=== PATIENT | female | born 1930 | race Caucasian/White ===

== ENCOUNTER → 2016-11-03 | Outpatient (REF) | payer MEDICARE, MEDICAID ==
[~2016-11-03] MED LIST: *CXR; /LANS30GR; /LINE60TA OR; /PANT40TA; /WARF25TA; /WARF5TA OR; ACET500C OR; ACET65TA; ACTONEL35 PO; ALBU83IN IN; ALBUTEROL LIQ INH; ATENOL25 PO; ATROVENT0.02% INH; AXID PO; BACT800T; CALCCHW12 OR; CELEXA PO; CELEXA10 PO; COLA100C2 OR; COLACE PO; COUM2TAB10 PO; COUMADIN25 PO; COZA1TAB PO; DEXA; DIGO0.126 OR; FENO145T PO; FLAG250T; FLUC10TA; FOLI1TAB OR; FOLIC1 PO; GALA12TA PO; GALANTAMINE OR; KEFLEX250 PO; LASI20TA OR; LASI40TA OR; LIDODERM TOPICAL; LOPR50TA OR; METH5TAB2 OR; METHADONE OR; METO25TA2; MIACALCIN; MILKSUS; MILKSUS OR; MINER; MULTIVIT OR; MULTIVITAMIN; NORV5TAB OR; OYST500T76; PERC5TAB8; PLAVIX75 PO; PRAV40TA OR; PRED10TA2; PRED10TA2 OR; PRED2.5T OR; PRED20TA OR; PRED5TAB OR; PREDNISON5 PO; PREVACID30 PO; PRIL20CA OR; PRILOSEC20 PO; RAZADYNE; RAZADYNE PO; REME30TA; REME30TA OR; SIMV40TA2; SULF500T2 PO; TESSALO100 PO; TIZANIDINE; VITAMIN D50000 UNT; VITAMIN D50000 UNT OR; VITAMINB12 INJ; ZANA4CAP OR; ZEBETA5 PO; ZITHROZPAK PO; ZOCOR40 PO; [UNRECOGNIZED DRUG - CODE] PO; [UNRECOGNIZED DRUG - CODE] PO; [UNRECOGNIZED DRUG - CODE] PO; [UNRECOGNIZED DRUG - OTHER]; [UNRECOGNIZED DRUG - OTHER] -; [UNRECOGNIZED DRUG - OTHER] PO; [UNRECOGNIZED DRUG - OTHER] PO; actonel OR; captopril; colace; ferrous sulfate OR; fleet enema; lidoderm; senokot PO; tizanidine; vit b 12 OR
[2016-11-03 09:33] LABS: MEAN CORPUSCULAR HGB CONC 30.9 g/dl (32.0-36.5); MEAN CORPUSCULAR VOLUME 93.8 fl (80.0-96.0); WHITE BLOOD COUNT 5.5 K/mm3 (4.0-10.0)
[2016-11-03 09:50] LABS: INR 2.04
[2016-11-03 10:21] LABS: ALBUMIN 3.5 GM/DL (3.2-5.2); ALT/SGPT 17 U/L (12-78); ANION GAP 12 MEQ/L (8-16); BLOOD UREA NITROGEN 29 MG/DL (7-18); CALCIUM LEVEL 8.4 MG/DL (8.8-10.2); CARBON DIOXIDE LEVEL 24 MEQ/L (21-32); CHLORIDE LEVEL 109 MEQ/L (98-107); CREATININE FOR GFR 0.74 MG/DL (0.55-1.02); GLOMERULAR FILTRATION RATE > 60.0 (>32); GLUCOSE, FASTING 73 MG/DL (83-110); POTASSIUM SERUM 4.8 MEQ/L (3.5-5.1); SODIUM LEVEL 145 MEQ/L (136-145)
== END | disposition home or self-care (01) ==
LOC: SKLAB5 08:41
PROVIDERS: ATTEND Family Medicine
DX: Z51.81 Encounter for therapeutic drug level monitoring (principal); Z79.01 Long term (current) use of anticoagulants; I48.91 Unspecified atrial fibrillation; D64.9 Anemia, unspecified

== ENCOUNTER → 2016-11-10 | Outpatient (REF) | payer MEDICARE, MEDICAID ==
[2016-11-10 09:13] LABS: INR 3.59
== END | disposition home or self-care (01) ==
LOC: SKLAB5 07:28
PROVIDERS: ATTEND Family Medicine
DX: Z51.81 Encounter for therapeutic drug level monitoring (principal); Z79.01 Long term (current) use of anticoagulants

== ENCOUNTER → 2016-11-17 | Outpatient (REF) | payer MEDICARE, MEDICAID ==
[2016-11-17 08:37] LABS: INR 2.36
== END | disposition home or self-care (01) ==
LOC: SKLAB5 07:32
PROVIDERS: ATTEND Family Medicine
DX: Z51.81 Encounter for therapeutic drug level monitoring (principal); Z79.01 Long term (current) use of anticoagulants

== ENCOUNTER → 2016-11-24 | Outpatient (REF) | payer MEDICARE, MEDICAID ==
[2016-11-24 08:54] LABS: INR 3.42
== END | disposition home or self-care (01) ==
LOC: SKLAB5 12:48
PROVIDERS: ATTEND Family Medicine
DX: Z51.81 Encounter for therapeutic drug level monitoring (principal); Z79.01 Long term (current) use of anticoagulants

== ENCOUNTER → 2016-12-01 | Outpatient (REF) | payer MEDICARE, MEDICAID ==
[2016-12-01 07:52] LABS: MEAN CORPUSCULAR HEMOGLOBIN 29.3 pg (27.0-33.0); MEAN CORPUSCULAR HGB CONC 31.5 g/dl (32.0-36.5); MEAN CORPUSCULAR VOLUME 93.2 fl (80.0-96.0); RED CELL DISTRIBUTION WIDTH 15.3 % (11.5-14.5); WHITE BLOOD COUNT 6.7 K/mm3 (4.0-10.0)
[2016-12-01 07:59] LABS: INR 2.68
[2016-12-01 08:08] LABS: ALBUMIN 3.6 GM/DL (3.2-5.2); ALT/SGPT 18 U/L (12-78); ANION GAP 10 MEQ/L (8-16); BLOOD UREA NITROGEN 22 MG/DL (7-18); CALCIUM LEVEL 8.8 MG/DL (8.8-10.2); CARBON DIOXIDE LEVEL 27 MEQ/L (21-32); CHLORIDE LEVEL 109 MEQ/L (98-107); CREATININE FOR GFR 0.67 MG/DL (0.55-1.02); GLOMERULAR FILTRATION RATE > 60.0 (>32); GLUCOSE, FASTING 85 MG/DL (83-110); PHOSPHORUS LEVEL 3.4 MG/DL (2.5-4.9); POTASSIUM SERUM 4.1 MEQ/L (3.5-5.1); SODIUM LEVEL 146 MEQ/L (136-145)
== END | disposition home or self-care (01) ==
LOC: SKLAB5 08:19
PROVIDERS: ATTEND Internal Medicine
DX: Z51.81 Encounter for therapeutic drug level monitoring (principal); Z79.01 Long term (current) use of anticoagulants; I48.91 Unspecified atrial fibrillation; D64.9 Anemia, unspecified

== ENCOUNTER → 2016-12-08 | Outpatient (REF) | payer MEDICARE, MEDICAID ==
[2016-12-08 09:18] LABS: INR 2.45
== END | disposition home or self-care (01) ==
LOC: SKLAB5 07:44
PROVIDERS: ATTEND Family Medicine
DX: Z51.81 Encounter for therapeutic drug level monitoring (principal); Z79.01 Long term (current) use of anticoagulants

== ENCOUNTER → 2016-12-15 | Outpatient (REF) | payer MEDICARE, MEDICAID ==
[2016-12-15 09:23] LABS: INR 2.71
== END | disposition home or self-care (01) ==
LOC: SKLAB5 08:02
PROVIDERS: ATTEND Family Medicine
DX: Z51.81 Encounter for therapeutic drug level monitoring (principal); Z79.01 Long term (current) use of anticoagulants

== ENCOUNTER → 2016-12-22 | Outpatient (REF) | payer MEDICARE, MEDICAID ==
[2016-12-22 08:26] LABS: INR 3.72
== END ==
LOC: SKLAB5 07:24
PROVIDERS: ATTEND Family Medicine
DX: Z51.81 Encounter for therapeutic drug level monitoring (principal); Z79.01 Long term (current) use of anticoagulants; I48.91 Unspecified atrial fibrillation

== ENCOUNTER → 2016-12-29 | Outpatient (REF) | payer MEDICARE, MEDICAID ==
[2016-12-29 09:56] LABS: MEAN CORPUSCULAR HEMOGLOBIN 29.2 pg (27.0-33.0); MEAN CORPUSCULAR HGB CONC 31.3 g/dl (32.0-36.5); MEAN CORPUSCULAR VOLUME 93.3 fl (80.0-96.0); RED CELL DISTRIBUTION WIDTH 14.1 % (11.5-14.5); WHITE BLOOD COUNT 6.2 K/mm3 (4.0-10.0)
[2016-12-29 10:06] LABS: INR 1.89
== END ==
LOC: SKLAB5 08:53
PROVIDERS: ATTEND Family Medicine
DX: I48.91 Unspecified atrial fibrillation (principal); D64.9 Anemia, unspecified; M06.9 Rheumatoid arthritis, unspecified

== ENCOUNTER → 2017-01-05 | Outpatient (REF) | payer MEDICARE, MEDICAID ==
[2017-01-05 09:16] LABS: INR 3.5
== END ==
LOC: SKLAB5 07:34
PROVIDERS: ATTEND Family Medicine
DX: I48.91 Unspecified atrial fibrillation (principal); Z79.01 Long term (current) use of anticoagulants

== ENCOUNTER → 2017-01-12 | Outpatient (REF) | payer MEDICARE, MEDICAID ==
[2017-01-12 10:02] LABS: INR 1.68
== END ==
LOC: SKLAB5 08:00
PROVIDERS: ATTEND Family Medicine
DX: Z51.81 Encounter for therapeutic drug level monitoring (principal); Z79.01 Long term (current) use of anticoagulants; I48.91 Unspecified atrial fibrillation

== ENCOUNTER → 2017-01-19 | Outpatient (REF) | payer MEDICARE, MEDICAID ==
[2017-01-19 10:24] LABS: INR 1.69
== END ==
LOC: SKLAB5 08:26
PROVIDERS: ATTEND Family Medicine
DX: Z51.81 Encounter for therapeutic drug level monitoring (principal); Z79.01 Long term (current) use of anticoagulants

== ENCOUNTER → 2017-01-26 | Outpatient (REF) | payer MEDICARE, MEDICAID ==
[2017-01-26 10:06] LABS: INR 2.34
== END ==
LOC: SKLAB5 07:50
PROVIDERS: ATTEND Family Medicine
DX: Z51.81 Encounter for therapeutic drug level monitoring (principal); Z79.01 Long term (current) use of anticoagulants

== ENCOUNTER → 2017-01-31 | Outpatient (REF) | payer MEDICARE, MEDICAID ==
[2017-01-31 08:28] LABS: INR 3.32
== END ==
LOC: SKLAB5 09:17
PROVIDERS: ATTEND Family Medicine
DX: Z51.81 Encounter for therapeutic drug level monitoring (principal); Z79.01 Long term (current) use of anticoagulants; I48.91 Unspecified atrial fibrillation

== ENCOUNTER → 2017-02-09 | Outpatient (REF) | payer MEDICARE, MEDICAID ==
[2017-02-09 12:02] LABS: INR 5.83
== END ==
LOC: SKLAB5 07:46
PROVIDERS: ATTEND Family Medicine
DX: Z51.81 Encounter for therapeutic drug level monitoring (principal); Z79.01 Long term (current) use of anticoagulants; I48.91 Unspecified atrial fibrillation

== ENCOUNTER → 2017-02-16 | Outpatient (REF) | payer MEDICARE, MEDICAID ==
[2017-02-16 09:08] LABS: INR 2.32
== END ==
LOC: SKLAB5 07:21
PROVIDERS: ATTEND Family Medicine
DX: Z51.81 Encounter for therapeutic drug level monitoring (principal); Z79.01 Long term (current) use of anticoagulants; I48.91 Unspecified atrial fibrillation

== ENCOUNTER → 2017-02-23 | Outpatient (REF) | payer MEDICARE, MEDICAID ==
[2017-02-23 09:35] LABS: INR 1.37
== END ==
LOC: SKLAB5 09:34
PROVIDERS: ATTEND Family Medicine
DX: Z51.81 Encounter for therapeutic drug level monitoring (principal); Z79.01 Long term (current) use of anticoagulants

== ENCOUNTER → 2017-03-02 | Outpatient (REF) | payer MEDICARE, MEDICAID ==
[2017-03-02 10:09] LABS: MEAN CORPUSCULAR VOLUME 96.5 fl (80.0-96.0); RED CELL DISTRIBUTION WIDTH 15.2 % (11.5-14.5); WHITE BLOOD COUNT 6.2 K/mm3 (4.0-10.0)
[2017-03-02 10:44] LABS: ANION GAP 8 MEQ/L (8-16); BLOOD UREA NITROGEN 27 MG/DL (7-18); CALCIUM LEVEL 8.5 MG/DL (8.8-10.2); CARBON DIOXIDE LEVEL 30 MEQ/L (21-32); CHLORIDE LEVEL 108 MEQ/L (98-107); CHOLESTEROL LEVEL 223 MG/DL (<200); CREATININE FOR GFR 0.64 MG/DL (0.55-1.02); GLOMERULAR FILTRATION RATE > 60.0 (>32); GLUCOSE, FASTING 89 MG/DL (83-110); MAGNESIUM LEVEL 2.4 MG/DL (1.8-2.4); POTASSIUM SERUM 4.2 MEQ/L (3.5-5.1); SODIUM LEVEL 146 MEQ/L (136-145); TRIGLYCERIDES LEVEL 260 MG/DL (<150)
== END ==
LOC: SKLAB5 07:12
PROVIDERS: ATTEND Family Medicine
DX: D64.9 Anemia, unspecified (principal); E03.9 Hypothyroidism, unspecified; I48.91 Unspecified atrial fibrillation; M06.9 Rheumatoid arthritis, unspecified

== ENCOUNTER → 2017-03-09 | Outpatient (REF) | payer MEDICARE, MEDICAID ==
[2017-03-09 09:23] LABS: INR 1.67
== END ==
LOC: SKLAB5 09:52
PROVIDERS: ATTEND Family Medicine
DX: Z51.81 Encounter for therapeutic drug level monitoring (principal); Z79.01 Long term (current) use of anticoagulants

== ENCOUNTER → 2017-03-15 | Outpatient (REF) | payer MEDICARE, MEDICAID | LOC: SKLAB5 12:00 | PROVIDERS: ATTEND Family Medicine | DX: Z86.14 Personal history of Methicillin resistant Staphylococcus aureus infection (principal) ==

== ENCOUNTER → 2017-03-16 | Outpatient (REF) | payer MEDICARE, MEDICAID ==
[2017-03-16 09:10] LABS: INR 1.73
== END ==
LOC: SKLAB5 08:29
PROVIDERS: ATTEND Family Medicine
DX: Z51.81 Encounter for therapeutic drug level monitoring (principal); Z79.01 Long term (current) use of anticoagulants; I48.91 Unspecified atrial fibrillation

== ENCOUNTER → 2017-03-22 | Outpatient (REF) | payer MEDICARE, MEDICAID | LOC: SKLAB5 10:35 | PROVIDERS: ATTEND Family Medicine | DX: Z86.14 Personal history of Methicillin resistant Staphylococcus aureus infection (principal) ==

== ENCOUNTER → 2017-03-23 | Outpatient (REF) | payer MEDICARE, MEDICAID ==
[2017-03-23 10:21] LABS: INR 2.28
== END ==
LOC: SKLAB5 12:15
PROVIDERS: ATTEND Family Medicine
DX: Z51.81 Encounter for therapeutic drug level monitoring (principal); Z79.01 Long term (current) use of anticoagulants; I48.91 Unspecified atrial fibrillation

== ENCOUNTER → 2017-03-30 | Outpatient (REF) | payer MEDICARE, MEDICAID ==
[2017-03-30 09:12] LABS: INR 3.34
== END ==
LOC: SKLAB5 07:27
PROVIDERS: ATTEND Family Medicine
DX: I48.91 Unspecified atrial fibrillation (principal)

== ENCOUNTER → 2017-03-31 | Outpatient (REF) | payer MEDICARE, MEDICAID | LOC: SKLAB5 11:28 | PROVIDERS: ATTEND Family Medicine | DX: Z86.14 Personal history of Methicillin resistant Staphylococcus aureus infection (principal) ==

== ENCOUNTER → 2017-04-01 | Outpatient (REF) | payer MEDICARE, MEDICAID ==
[2017-04-01 06:56] LABS: INR 2.18
== END ==
LOC: SKLAB5 08:44
PROVIDERS: ATTEND Family Medicine
DX: I48.91 Unspecified atrial fibrillation (principal)

== ENCOUNTER → 2017-04-06 | Outpatient (REF) | payer MEDICARE, MEDICAID | LOC: SKLAB5 08:04 | PROVIDERS: ATTEND Family Medicine | DX: Z51.81 Encounter for therapeutic drug level monitoring (principal); Z79.01 Long term (current) use of anticoagulants ==

== ENCOUNTER → 2017-04-13 | Outpatient (REF) | payer MEDICARE, MEDICAID ==
[2017-04-13 10:44] LABS: INR 2.81
== END ==
LOC: EEVIPCON → SKLAB5 07:21
PROVIDERS: ATTEND Family Medicine
DX: Z51.81 Encounter for therapeutic drug level monitoring (principal); Z79.01 Long term (current) use of anticoagulants; I48.91 Unspecified atrial fibrillation

== ENCOUNTER → 2017-04-19 | Outpatient (REF) | payer MEDICARE, MEDICAID ==
--- NOTE | 2017-04-19 19:35 | REP ---
AP PORTABLE CHEST: 04/19/2017. Comparison: 01/05/2016. Clinical history: Fever. Findings: Portable upright chest shows left ventricular configuration of the heart. There is venous hypertension without mak edema. Heavily calcified mitral annulus noted. No gross effusion. No dense consolidation. Some calcified granulomas in the left upper lobe and hilar region. Degenerative changes in the spine and right shoulder. Impression: 1. Cardiomegaly with venous hypertension, but no definite effusion, mak edema, dense consolidation or parenchymal mass. 2. Old granulomatous disease and a tortuous calcified aorta. 3. 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 Signed by Eyal Arechiga MD 04/19/2017 08:33 P
[2017-04-19 19:42] LABS: CALCIUM LEVEL 8.6 MG/DL (8.8-10.2); CREATININE FOR GFR 0.95 MG/DL (0.55-1.02); GLOMERULAR FILTRATION RATE 59.5 (>32); MEAN CORPUSCULAR HEMOGLOBIN 30.2 pg (27.0-33.0); MEAN CORPUSCULAR HGB CONC 31.1 g/dl (32.0-36.5); MEAN CORPUSCULAR VOLUME 96.9 fl (80.0-96.0); RED CELL DISTRIBUTION WIDTH 14.6 % (11.5-14.5); WHITE BLOOD COUNT 12.1 K/mm3 (4.0-10.0)
== END ==
LOC: SKLAB5 18:27
PROVIDERS: ATTEND Family Medicine
DX: R50.9 Fever, unspecified (principal); I51.7 Cardiomegaly; I70.0 Atherosclerosis of aorta

== ENCOUNTER → 2017-04-20 | Outpatient (REF) | payer MEDICARE, MEDICAID ==
[2017-04-20 09:56] LABS: INR 3.89
== END ==
LOC: SKLAB5 07:26
PROVIDERS: ATTEND Family Medicine
DX: Z51.81 Encounter for therapeutic drug level monitoring (principal); Z79.01 Long term (current) use of anticoagulants; I48.91 Unspecified atrial fibrillation

== ENCOUNTER → 2017-04-24 | Outpatient (REF) | payer MEDICARE, MEDICAID ==
[2017-04-24 08:29] LABS: INR 1.25
== END ==
LOC: SKLAB5 09:44
PROVIDERS: ATTEND Family Medicine
DX: Z51.81 Encounter for therapeutic drug level monitoring (principal); Z79.01 Long term (current) use of anticoagulants; I48.91 Unspecified atrial fibrillation

== ENCOUNTER → 2017-04-27 | Outpatient (REF) | payer MEDICARE, MEDICAID ==
[~2017-04-27] MED LIST changes: -COUM2TAB10 PO; +COUM2TAB22 PO
[2017-04-27 08:27] LABS: INR 1.69
== END ==
LOC: SKLAB4 09:55
PROVIDERS: ATTEND Family Medicine
DX: Z51.81 Encounter for therapeutic drug level monitoring (principal); Z79.01 Long term (current) use of anticoagulants; I48.91 Unspecified atrial fibrillation

== ENCOUNTER → 2017-05-04 | Outpatient (REF) | payer MEDICARE, MEDICAID ==
[2017-05-04 09:41] LABS: INR 1.62
== END ==
LOC: SKLAB5 08:20
PROVIDERS: ATTEND Family Medicine
DX: Z51.81 Encounter for therapeutic drug level monitoring (principal); Z79.01 Long term (current) use of anticoagulants; I48.91 Unspecified atrial fibrillation

== ENCOUNTER → 2017-05-11 | Outpatient (REF) | payer MEDICARE, MEDICAID ==
[2017-05-11 10:35] LABS: INR 1.32
== END ==
LOC: SKLAB5 08:57
PROVIDERS: ATTEND Family Medicine
DX: Z51.81 Encounter for therapeutic drug level monitoring (principal); Z79.01 Long term (current) use of anticoagulants; I48.91 Unspecified atrial fibrillation

== ENCOUNTER → 2017-05-18 | Outpatient (REF) | payer MEDICARE, MEDICAID ==
[2017-05-18 08:20] LABS: INR 1.89
== END ==
LOC: SKLAB5 06:32
PROVIDERS: ATTEND Family Medicine
DX: Z51.81 Encounter for therapeutic drug level monitoring (principal); Z79.01 Long term (current) use of anticoagulants; I48.91 Unspecified atrial fibrillation

== ENCOUNTER → 2017-05-25 | Outpatient (REF) | payer MEDICARE, MEDICAID ==
[2017-05-25 08:58] LABS: INR 3.05
== END ==
LOC: SKLAB5 07:45
PROVIDERS: ATTEND Family Medicine
DX: Z51.81 Encounter for therapeutic drug level monitoring (principal); Z79.01 Long term (current) use of anticoagulants; I48.91 Unspecified atrial fibrillation

== ENCOUNTER → 2017-06-01 | Outpatient (REF) | payer MEDICARE, MEDICAID ==
[2017-06-01 08:45] LABS: INR 2.88
[2017-06-01 08:46] LABS: MEAN CORPUSCULAR HEMOGLOBIN 29.6 pg (27.0-33.0); MEAN CORPUSCULAR HGB CONC 32.8 g/dl (32.0-36.5); MEAN CORPUSCULAR VOLUME 90.3 fl (80.0-96.0); RED CELL DISTRIBUTION WIDTH 14.8 % (11.5-14.5); WHITE BLOOD COUNT 6.3 K/mm3 (4.0-10.0)
[2017-06-01 08:58] LABS: ANION GAP 9 MEQ/L (8-16); BLOOD UREA NITROGEN 17 MG/DL (7-18); CALCIUM LEVEL 8.7 MG/DL (8.8-10.2); CARBON DIOXIDE LEVEL 28 MEQ/L (21-32); CHLORIDE LEVEL 106 MEQ/L (98-107); CREATININE FOR GFR 0.47 MG/DL (0.55-1.02); GLOMERULAR FILTRATION RATE > 60.0 (>32); GLUCOSE, FASTING 88 MG/DL (83-110); MAGNESIUM LEVEL 2.5 MG/DL (1.8-2.4); POTASSIUM SERUM 3.9 MEQ/L (3.5-5.1); SODIUM LEVEL 143 MEQ/L (136-145)
== END ==
LOC: SKLAB5 08:44
PROVIDERS: ATTEND Family Medicine
DX: I48.91 Unspecified atrial fibrillation (principal); M06.9 Rheumatoid arthritis, unspecified

== ENCOUNTER → 2017-06-08 | Outpatient (REF) | payer MEDICARE, MEDICAID ==
[2017-06-08 10:04] LABS: INR 2.71
== END ==
LOC: SKLAB5 08:07
PROVIDERS: ATTEND Family Medicine
DX: Z51.81 Encounter for therapeutic drug level monitoring (principal); Z79.01 Long term (current) use of anticoagulants; I48.91 Unspecified atrial fibrillation

== ENCOUNTER → 2017-06-15 | Outpatient (REF) | payer MEDICARE, MEDICAID ==
[2017-06-15 09:57] LABS: INR 3.18
== END ==
LOC: SKLAB5 07:53
PROVIDERS: ATTEND Family Medicine
DX: I48.91 Unspecified atrial fibrillation (principal)

== ENCOUNTER → 2017-06-22 | Outpatient (REF) | payer MEDICARE, MEDICAID ==
[2017-06-22 08:44] LABS: INR 4.26
== END ==
LOC: SKLAB5 07:50
PROVIDERS: ATTEND Family Medicine
DX: Z51.81 Encounter for therapeutic drug level monitoring (principal); Z79.01 Long term (current) use of anticoagulants; I48.91 Unspecified atrial fibrillation

== ENCOUNTER → 2017-06-29 | Outpatient (REF) | payer MEDICARE, MEDICAID ==
[2017-06-29 08:32] LABS: INR 2.78
== END ==
LOC: SKLAB5 08:38
PROVIDERS: ATTEND Family Medicine
DX: Z51.81 Encounter for therapeutic drug level monitoring (principal); Z79.01 Long term (current) use of anticoagulants; I48.91 Unspecified atrial fibrillation

== ENCOUNTER → 2017-07-06 | Outpatient (REF) | payer MEDICARE, MEDICAID ==
[2017-07-06 09:05] LABS: INR 3.31
== END ==
LOC: SKLAB5 07:30
PROVIDERS: ATTEND Family Medicine
DX: I48.91 Unspecified atrial fibrillation (principal)

== ENCOUNTER → 2017-07-13 | Outpatient (REF) | payer MEDICARE, MEDICAID | LOC: SKLAB5 07:29 | PROVIDERS: ATTEND Family Medicine | DX: Z51.81 Encounter for therapeutic drug level monitoring (principal); Z79.01 Long term (current) use of anticoagulants; I48.91 Unspecified atrial fibrillation ==

== ENCOUNTER → 2017-07-20 | Outpatient (REF) | payer MEDICARE, MEDICAID ==
[2017-07-20 09:30] LABS: INR 3.1
== END ==
LOC: SKLAB5 08:39
PROVIDERS: ATTEND Family Medicine
DX: I48.91 Unspecified atrial fibrillation (principal)

== ENCOUNTER → 2017-07-27 | Outpatient (REF) | payer MEDICARE, MEDICAID ==
[2017-07-27 08:29] LABS: INR 1.24
== END ==
LOC: SKLAB5 07:41
PROVIDERS: ATTEND Family Medicine
DX: Z51.81 Encounter for therapeutic drug level monitoring (principal); Z79.01 Long term (current) use of anticoagulants; I48.91 Unspecified atrial fibrillation

== ENCOUNTER → 2017-08-03 | Outpatient (REF) | payer MEDICARE, MEDICAID ==
[2017-08-03 09:24] LABS: INR 1.74
== END ==
LOC: SKLAB5 08:44
PROVIDERS: ATTEND Family Medicine
DX: Z51.81 Encounter for therapeutic drug level monitoring (principal); Z79.899 Other long term (current) drug therapy; I48.91 Unspecified atrial fibrillation

== ENCOUNTER → 2017-08-10 | Outpatient (REF) | payer MEDICARE, MEDICAID ==
[2017-08-10 10:00] LABS: INR 2.07
== END ==
LOC: SKLAB5 13:13
PROVIDERS: ATTEND Family Medicine
DX: Z51.81 Encounter for therapeutic drug level monitoring (principal); Z79.01 Long term (current) use of anticoagulants; I48.91 Unspecified atrial fibrillation

== ENCOUNTER → 2017-08-17 | Outpatient (REF) | payer MEDICARE, MEDICAID ==
[2017-08-17 09:19] LABS: INR 2.3
== END ==
LOC: SKLAB5 11:08
PROVIDERS: ATTEND Family Medicine
DX: Z51.81 Encounter for therapeutic drug level monitoring (principal); Z79.01 Long term (current) use of anticoagulants; I48.91 Unspecified atrial fibrillation

== ENCOUNTER → 2017-08-24 | Outpatient (REF) | payer MEDICARE, MEDICAID ==
[2017-08-24 12:37] LABS: INR 1.63
== END ==
LOC: SKLAB5 08:42
PROVIDERS: ATTEND Family Medicine
DX: Z51.81 Encounter for therapeutic drug level monitoring (principal); Z79.01 Long term (current) use of anticoagulants; I48.91 Unspecified atrial fibrillation

== ENCOUNTER → 2017-09-07 | Outpatient (REF) | payer MEDICARE, MEDICAID ==
[2017-09-07 10:06] LABS: INR 4.09
== END ==
LOC: SKLAB5 07:54
PROVIDERS: ATTEND Family Medicine
DX: I48.91 Unspecified atrial fibrillation (principal)

== ENCOUNTER → 2017-09-11 | Outpatient (REF) | payer MEDICARE, MEDICAID ==
[2017-09-11 10:53] LABS: INR 2.29
== END ==
LOC: SKLAB5 07:35
PROVIDERS: ATTEND Family Medicine
DX: I48.91 Unspecified atrial fibrillation (principal)

== ENCOUNTER → 2017-09-14 | Outpatient (REF) | payer MEDICARE, MEDICAID ==
[2017-09-14 09:13] LABS: INR 3.08
== END ==
LOC: SKLAB5 12:11
PROVIDERS: ATTEND Family Medicine
DX: Z51.81 Encounter for therapeutic drug level monitoring (principal); Z79.01 Long term (current) use of anticoagulants; I48.91 Unspecified atrial fibrillation

== ENCOUNTER → 2017-09-20 | Outpatient (REF) | payer MEDICARE, MEDICAID ==
[2017-09-20 08:59] LABS: INR 4.07
== END ==
LOC: SKLAB5 07:55
PROVIDERS: ATTEND Family Medicine
DX: I48.91 Unspecified atrial fibrillation (principal)

== ENCOUNTER → 2017-09-25 | Outpatient (REF) | payer MEDICARE, MEDICAID ==
[2017-09-25 10:08] LABS: INR 2.64
== END ==
LOC: SKLAB5 12:43
PROVIDERS: ATTEND Family Medicine
DX: I48.91 Unspecified atrial fibrillation (principal)

== ENCOUNTER → 2017-09-28 | Outpatient (REF) | payer MEDICARE, MEDICAID ==
[2017-09-28 09:28] LABS: INR 4.17
== END ==
LOC: SKLAB5 12:43
PROVIDERS: ATTEND Family Medicine
DX: Z51.81 Encounter for therapeutic drug level monitoring (principal); Z79.01 Long term (current) use of anticoagulants; I48.91 Unspecified atrial fibrillation

== ENCOUNTER → 2017-10-05 | Outpatient (REF) | payer MEDICARE, MEDICAID ==
[2017-10-05 09:38] LABS: INR 3.67
== END ==
LOC: SKLAB5 07:47
PROVIDERS: ATTEND Family Medicine
DX: I48.91 Unspecified atrial fibrillation (principal)

== ENCOUNTER → 2017-10-12 | Outpatient (REF) | payer MEDICARE, MEDICAID ==
[2017-10-12 09:03] LABS: INR 1.82
== END ==
LOC: SKLAB5 10:54
PROVIDERS: ATTEND Family Medicine
DX: I48.91 Unspecified atrial fibrillation (principal)

== ENCOUNTER → 2017-10-19 | Outpatient (REF) | payer MEDICARE, MEDICAID ==
[2017-10-19 09:33] LABS: INR 1.43
== END ==
LOC: SKLAB5 07:58
PROVIDERS: ATTEND Family Medicine
DX: I48.91 Unspecified atrial fibrillation (principal); Z79.01 Long term (current) use of anticoagulants

== ENCOUNTER → 2017-10-26 | Outpatient (REF) | payer MEDICARE, MEDICAID ==
[2017-10-26 09:08] LABS: INR 2.14
== END ==
LOC: SKLAB5 07:08
DX: I48.91 Unspecified atrial fibrillation (principal)
CPT/HCPCS: 36415

== ENCOUNTER → 2017-11-02 | Outpatient (REF) | payer MEDICARE, MEDICAID ==
[2017-11-02 09:20] LABS: INR 3.42; PROTHROMBIN TIME 36.1 SECONDS (12.4-14.5)
== END ==
LOC: SKLAB5 07:56
DX: I48.91 Unspecified atrial fibrillation (principal)
CPT/HCPCS: 36415

== ENCOUNTER → 2017-11-09 | Outpatient (REF) | payer MEDICARE, MEDICAID ==
[2017-11-09 09:58] LABS: INR 1.98; PROTHROMBIN TIME 23.2 SECONDS (12.4-14.5)
== END ==
LOC: SKLAB5 12:27
DX: I48.91 Unspecified atrial fibrillation (principal)
CPT/HCPCS: 36415

== ENCOUNTER → 2017-11-16 | Outpatient (REF) | payer MEDICARE, MEDICAID ==
[2017-11-16 10:18] LABS: INR 1.75
== END ==
LOC: SKLAB5 07:55
DX: I48.91 Unspecified atrial fibrillation (principal)
CPT/HCPCS: 36415

== ENCOUNTER → 2017-11-23 | Outpatient (REF) | payer MEDICARE, MEDICAID ==
[2017-11-23 08:51] LABS: INR 3.15; PROTHROMBIN TIME 33.8 SECONDS (12.4-14.5)
== END ==
LOC: SKLAB5 08:11
DX: I48.91 Unspecified atrial fibrillation (principal)
CPT/HCPCS: 36415

== ENCOUNTER → 2017-11-30 | Outpatient (REF) | payer MEDICARE, MEDICAID ==
[2017-11-30 08:33] LABS: HEMATOCRIT 40.5 % (36.0-47.0); HEMOGLOBIN 12.8 g/dl (12.0-16.0); MEAN CORPUSCULAR HEMOGLOBIN 28.1 pg (27.0-33.0); MEAN CORPUSCULAR HGB CONC 31.6 g/dl (32.0-36.5); PLATELET COUNT, AUTOMATED 194 10^3/uL (150-450); RED BLOOD COUNT 4.55 10^6/uL (4.00-5.40); RED CELL DISTRIBUTION WIDTH 15.8 % (11.5-14.5)
[2017-11-30 08:50] LABS: ANION GAP 5 MEQ/L (8-16); BLOOD UREA NITROGEN 17 MG/DL (7-18); CALCIUM LEVEL 8.5 MG/DL (8.8-10.2); CARBON DIOXIDE LEVEL 27 MEQ/L (21-32); CHLORIDE LEVEL 111 MEQ/L (98-107); GLOMERULAR FILTRATION RATE > 60.0 (>32); GLUCOSE, FASTING 86 MG/DL (70-100); MAGNESIUM LEVEL 2.3 MG/DL (1.8-2.4); POTASSIUM SERUM 4.1 MEQ/L (3.5-5.1); SODIUM LEVEL 143 MEQ/L (136-145)
[2017-11-30 08:53] LABS: INR 2.61
== END ==
LOC: SKLAB5 07:48
DX: I48.91 Unspecified atrial fibrillation (principal)
CPT/HCPCS: 83735

== ENCOUNTER → 2017-12-07 | Outpatient (REF) | payer MEDICARE, MEDICAID ==
[2017-12-07 09:26] LABS: INR 2.32; PROTHROMBIN TIME 26.4 SECONDS (12.4-14.5)
== END ==
LOC: SKLAB5 07:59
DX: I48.91 Unspecified atrial fibrillation (principal)
CPT/HCPCS: 36415

== ENCOUNTER → 2017-12-14 | Outpatient (REF) | payer MEDICARE, MEDICAID ==
[2017-12-14 09:30] LABS: INR 3.89; PROTHROMBIN TIME 40.1 SECONDS (12.4-14.5)
== END ==
LOC: SKLAB5 07:53
DX: I48.91 Unspecified atrial fibrillation (principal)
CPT/HCPCS: 36415

== ENCOUNTER → 2017-12-21 | Outpatient (REF) | payer MEDICARE, MEDICAID ==
[2017-12-21 10:23] LABS: INR 3.52
== END ==
LOC: SKLAB5 08:05
DX: I48.91 Unspecified atrial fibrillation (principal)
CPT/HCPCS: 36415

== ENCOUNTER → 2017-12-28 | Outpatient (REF) | payer MEDICARE, MEDICAID ==
[2017-12-28 08:12] LABS: INR 2.21; PROTHROMBIN TIME 25.3 SECONDS (12.4-14.5)
== END ==
LOC: SKLAB5 07:34
DX: Z79.01 Long term (current) use of anticoagulants (principal)
CPT/HCPCS: 36415

== ENCOUNTER → 2018-01-01 | Outpatient (REF) | payer MEDICARE, MEDICAID ==
[2018-01-01 09:48] LABS: PROTHROMBIN TIME 18.5 SECONDS (12.4-14.5)
== END ==
LOC: SKLAB5 07:15
DX: I48.91 Unspecified atrial fibrillation (principal)
CPT/HCPCS: 36415

== ENCOUNTER → 2018-01-04 | Outpatient (REF) | payer MEDICARE, MEDICAID ==
[2018-01-04 08:29] LABS: INR 2.09; PROTHROMBIN TIME 24.2 SECONDS (12.4-14.5)
== END ==
LOC: SKLAB5 07:34
DX: I48.91 Unspecified atrial fibrillation (principal)
CPT/HCPCS: 36415

== ENCOUNTER → 2018-01-08 | Outpatient (REF) | payer MEDICARE, MEDICAID ==
[2018-01-08 18:17] LABS: INR 1.32; PROTHROMBIN TIME 16.6 SECONDS (12.4-14.5)
== END ==
LOC: SKLAB5 17:22
DX: I48.91 Unspecified atrial fibrillation (principal)
CPT/HCPCS: 85610

== ENCOUNTER → 2018-01-11 | Outpatient (REF) | payer MEDICARE, MEDICAID ==
[2018-01-11 08:46] LABS: INR 1.32; PROTHROMBIN TIME 16.7 SECONDS (12.4-14.5)
== END ==
LOC: SKLAB5 08:41
DX: Z79.01 Long term (current) use of anticoagulants (principal)
CPT/HCPCS: 36415

== ENCOUNTER → 2018-01-18 | Outpatient (REF) | payer MEDICARE, MEDICAID ==
[2018-01-18 08:27] LABS: INR 2.84; PROTHROMBIN TIME 31.1 SECONDS (12.4-14.5)
== END ==
LOC: SKLAB5 07:33
DX: I48.91 Unspecified atrial fibrillation (principal)
CPT/HCPCS: 36415

== ENCOUNTER → 2018-01-25 | Outpatient (REF) | payer MEDICARE, MEDICAID ==
[2018-01-25 09:37] LABS: INR 3.31; PROTHROMBIN TIME 35.2 SECONDS (12.4-14.5)
== END ==
LOC: SKLAB5 07:42
DX: I48.91 Unspecified atrial fibrillation (principal)
CPT/HCPCS: 36415

== ENCOUNTER → 2018-03-01 | Outpatient (REF) | payer MEDICARE, MEDICAID ==
[2018-03-01 07:35] LABS: HEMATOCRIT 38.8 % (36.0-47.0); HEMOGLOBIN 12.3 g/dl (12.0-15.5); MEAN CORPUSCULAR HEMOGLOBIN 28.8 pg (27.0-33.0); MEAN CORPUSCULAR HGB CONC 31.7 g/dl (32.0-36.5); MEAN CORPUSCULAR VOLUME 90.9 fl (80.0-96.0); PLATELET COUNT, AUTOMATED 207 10^3/uL (150-450); RED BLOOD COUNT 4.27 10^6/uL (4.00-5.40); RED CELL DISTRIBUTION WIDTH 14.9 % (11.5-14.5)
[2018-03-01 07:51] LABS: INR 2.29; PROTHROMBIN TIME 26.1 SECONDS (12.4-14.5)
[2018-03-01 08:02] LABS: ANION GAP 6 MEQ/L (8-16); BLOOD UREA NITROGEN 19 MG/DL (7-18); CALCIUM LEVEL 8.1 MG/DL (8.8-10.2); CARBON DIOXIDE LEVEL 28 MEQ/L (21-32); CHLORIDE LEVEL 113 MEQ/L (98-107); CREATININE FOR GFR 0.61 MG/DL (0.55-1.30); GLOMERULAR FILTRATION RATE > 60.0 (>32); GLUCOSE, FASTING 89 MG/DL (70-100); MAGNESIUM LEVEL 2.3 MG/DL (1.8-2.4); POTASSIUM SERUM 4.6 MEQ/L (3.5-5.1); SODIUM LEVEL 147 MEQ/L (136-145)
== END ==
LOC: SKLAB5 10:33
DX: M06.9 Rheumatoid arthritis, unspecified (principal); D64.9 Anemia, unspecified
CPT/HCPCS: 83735

== ENCOUNTER → 2018-03-15 | Outpatient (REF) | payer MEDICARE, MEDICAID ==
[2018-03-15 09:02] LABS: INR 1.74; PROTHROMBIN TIME 20.8 SECONDS (12.4-14.5)
== END ==
LOC: SKLAB5 08:03
DX: I48.91 Unspecified atrial fibrillation (principal)
CPT/HCPCS: 36415

== ENCOUNTER → 2018-03-22 | Outpatient (REF) | payer MEDICARE, MEDICAID ==
[2018-03-22 09:16] LABS: INR 1.91; PROTHROMBIN TIME 22.5 SECONDS (12.4-14.5)
== END ==
LOC: SKLAB5 08:01
DX: I48.91 Unspecified atrial fibrillation (principal)
CPT/HCPCS: 85610

== ENCOUNTER → 2018-03-29 | Outpatient (REF) | payer MEDICARE, MEDICAID ==
[2018-03-29 08:07] LABS: INR 1.81; PROTHROMBIN TIME 21.5 SECONDS (12.4-14.5)
== END ==
LOC: SKLAB5 08:21
DX: Z79.01 Long term (current) use of anticoagulants (principal); I48.91 Unspecified atrial fibrillation
CPT/HCPCS: 36415

== ENCOUNTER → 2018-04-05 | Outpatient (REF) | payer MEDICARE, MEDICAID ==
[2018-04-05 08:10] LABS: INR 1.87; PROTHROMBIN TIME 22.1 SECONDS (12.4-14.5)
== END ==
LOC: SKLAB5 12:24
DX: I48.91 Unspecified atrial fibrillation (principal)
CPT/HCPCS: 36415

== ENCOUNTER → 2018-04-12 | Outpatient (REF) | payer MEDICARE, MEDICAID ==
[2018-04-12 08:26] LABS: INR 2.39
== END ==
LOC: SKLAB5 11:01
DX: I48.91 Unspecified atrial fibrillation (principal)
CPT/HCPCS: 36415

== ENCOUNTER → 2018-04-26 | Outpatient (REF) | payer MEDICARE, MEDICAID ==
[2018-04-26 08:11] LABS: INR 1.25; PROTHROMBIN TIME 15.9 SECONDS (12.1-14.4)
== END ==
LOC: SKLAB5 07:58
DX: I48.91 Unspecified atrial fibrillation (principal)
CPT/HCPCS: 85610

== ENCOUNTER → 2018-05-03 | Outpatient (REF) | payer MEDICARE, MEDICAID ==
[2018-05-03 09:02] LABS: HEMATOCRIT 41.7 % (36.0-47.0); MEAN CORPUSCULAR HEMOGLOBIN 29.1 pg (27.0-33.0); MEAN CORPUSCULAR HGB CONC 31.2 g/dl (32.0-36.5); MEAN CORPUSCULAR VOLUME 93.3 fl (80.0-96.0); PLATELET COUNT, AUTOMATED 204 10^3/uL (150-450); RED BLOOD COUNT 4.47 10^6/uL (4.00-5.40); RED CELL DISTRIBUTION WIDTH 14.6 % (11.5-14.5); WHITE BLOOD COUNT 4.7 10^3/uL (4.0-10.0)
[2018-05-03 09:17] LABS: ANION GAP 8 MEQ/L (8-16); BLOOD UREA NITROGEN 21 MG/DL (7-18); CALCIUM LEVEL 8.1 MG/DL (8.8-10.2); CARBON DIOXIDE LEVEL 29 MEQ/L (21-32); CHLORIDE LEVEL 110 MEQ/L (98-107); CREATININE FOR GFR 0.69 MG/DL (0.55-1.30); GLOMERULAR FILTRATION RATE > 60.0 (>32); GLUCOSE, FASTING 113 MG/DL (70-100); MAGNESIUM LEVEL 2.3 MG/DL (1.8-2.4); POTASSIUM SERUM 4.2 MEQ/L (3.5-5.1); SODIUM LEVEL 147 MEQ/L (136-145)
[2018-05-03 09:18] LABS: INR 1.92; PROTHROMBIN TIME 22.3 SECONDS (12.1-14.4)
== END ==
LOC: SKLAB5 07:31
DX: I48.91 Unspecified atrial fibrillation (principal); M06.9 Rheumatoid arthritis, unspecified; D64.9 Anemia, unspecified
CPT/HCPCS: 83735

== ENCOUNTER → 2018-05-17 | Outpatient (REF) | payer MEDICARE, MEDICAID ==
[2018-05-17 09:10] LABS: INR 1.54; PROTHROMBIN TIME 18.7 SECONDS (12.1-14.4)
== END ==
LOC: SKLAB5 08:23
DX: I48.91 Unspecified atrial fibrillation (principal)
CPT/HCPCS: 36415

== ENCOUNTER → 2018-05-24 | Outpatient (REF) | payer MEDICARE, MEDICAID ==
[2018-05-24 08:43] LABS: INR 1.54; PROTHROMBIN TIME 18.7 SECONDS (12.1-14.4)
== END ==
LOC: SKLAB5 08:12
DX: Z79.01 Long term (current) use of anticoagulants (principal)
CPT/HCPCS: 36415

== ENCOUNTER → 2018-05-31 | Outpatient (REF) | payer MEDICARE, MEDICAID ==
[2018-05-31 08:18] LABS: INR 1.49; PROTHROMBIN TIME 18.2 SECONDS (12.1-14.4)
== END ==
LOC: SKLAB5 09:26
DX: I48.91 Unspecified atrial fibrillation (principal)
CPT/HCPCS: 36415

== ENCOUNTER → 2018-06-07 | Outpatient (REF) | payer MEDICARE, MEDICAID ==
[2018-06-07 08:51] LABS: INR 1.93; PROTHROMBIN TIME 22.4 SECONDS (12.1-14.4)
== END ==
LOC: SKLAB5 12:51
DX: I48.91 Unspecified atrial fibrillation (principal)
CPT/HCPCS: 36415

== ENCOUNTER → 2018-06-14 | Outpatient (REF) | payer MEDICARE, MEDICAID ==
[2018-06-14 09:36] LABS: INR 3.47; PROTHROMBIN TIME 35.7 SECONDS (12.1-14.4)
== END ==
LOC: SKLAB5 07:31
DX: I48.91 Unspecified atrial fibrillation (principal)
CPT/HCPCS: 36415

== ENCOUNTER → 2018-06-15 | Outpatient (REF) | payer MEDICARE, MEDICAID ==
[2018-06-15 08:40] LABS: INR 3.29; PROTHROMBIN TIME 34.2 SECONDS (12.1-14.4)
== END ==
LOC: SKLAB5 08:00
DX: I48.91 Unspecified atrial fibrillation (principal)
CPT/HCPCS: 85610

== ENCOUNTER 2018-06-16 07:00 | Outpatient (REF) | payer MEDICARE, MEDICAID ==
[2018-06-16 11:50] LABS: INR 2.55; PROTHROMBIN TIME 27.9 SECONDS (12.1-14.4)
== END 2018-06-17 ==
LOC: SKLAB5 06-17 07:00
DX: Z79.01 Long term (current) use of anticoagulants (principal)
CPT/HCPCS: 85610

== ENCOUNTER → 2018-06-21 | Outpatient (REF) | payer MEDICARE, MEDICAID ==
[2018-06-21 09:38] LABS: INR 1.47; PROTHROMBIN TIME 18.1 SECONDS (12.1-14.4)
== END ==
LOC: SKLAB5 08:00
DX: Z79.01 Long term (current) use of anticoagulants (principal); I48.91 Unspecified atrial fibrillation
CPT/HCPCS: 36415

== ENCOUNTER → 2018-06-28 | Outpatient (REF) | payer MEDICARE, MEDICAID ==
[2018-06-28 09:27] LABS: PROTHROMBIN TIME 20.3 SECONDS (12.1-14.4)
== END ==
LOC: SKLAB5 08:43
DX: I48.91 Unspecified atrial fibrillation (principal)
CPT/HCPCS: 85610

== ENCOUNTER → 2018-07-05 | Outpatient (REF) | payer MEDICARE, MEDICAID ==
[2018-07-05 08:48] LABS: INR 1.19; PROTHROMBIN TIME 15.2 SECONDS (12.1-14.4)
== END ==
LOC: SKLAB5 09:45
DX: I48.91 Unspecified atrial fibrillation (principal)
CPT/HCPCS: 36415

== ENCOUNTER → 2018-07-12 | Outpatient (REF) | payer MEDICARE, MEDICAID ==
[2018-07-12 11:05] LABS: INR 2.05; PROTHROMBIN TIME 23.5 SECONDS (12.1-14.4)
== END ==
LOC: SKLAB5 07:24
DX: I48.91 Unspecified atrial fibrillation (principal)
CPT/HCPCS: 85610

== ENCOUNTER → 2018-07-19 | Outpatient (REF) | payer MEDICARE, MEDICAID ==
[2018-07-19 09:47] LABS: INR 2.52; PROTHROMBIN TIME 27.7 SECONDS (12.1-14.4)
== END ==
LOC: SKLAB5 12:55
DX: I48.91 Unspecified atrial fibrillation (principal)
CPT/HCPCS: 85610

== ENCOUNTER → 2018-07-26 | Outpatient (REF) | payer MEDICARE, MEDICAID ==
[2018-07-26 09:21] LABS: INR 2.27; PROTHROMBIN TIME 25.5 SECONDS (12.1-14.4)
== END ==
LOC: SKLAB5 07:44
DX: I48.91 Unspecified atrial fibrillation (principal)
CPT/HCPCS: 85610

== ENCOUNTER → 2018-08-02 | Outpatient (REF) | payer MEDICARE, MEDICAID ==
[2018-08-02 09:24] LABS: HEMATOCRIT 38.5 % (36.0-47.0); HEMOGLOBIN 12.1 g/dl (12.0-15.5); MEAN CORPUSCULAR HEMOGLOBIN 28.3 pg (27.0-33.0); MEAN CORPUSCULAR HGB CONC 31.4 g/dl (32.0-36.5); PLATELET COUNT, AUTOMATED 199 10^3/uL (150-450); RED BLOOD COUNT 4.28 10^6/uL (4.00-5.40); RED CELL DISTRIBUTION WIDTH 15.2 % (11.5-14.5); WHITE BLOOD COUNT 5.3 10^3/uL (4.0-10.0)
[2018-08-02 09:33] LABS: INR 1.94; PROTHROMBIN TIME 22.5 SECONDS (12.1-14.4)
[2018-08-02 09:48] LABS: ANION GAP 9 MEQ/L (8-16); BLOOD UREA NITROGEN 18 MG/DL (7-18); CALCIUM LEVEL 8.4 MG/DL (8.8-10.2); CARBON DIOXIDE LEVEL 26 MEQ/L (21-32); CHLORIDE LEVEL 112 MEQ/L (98-107); CREATININE FOR GFR 0.56 MG/DL (0.55-1.30); GLOMERULAR FILTRATION RATE > 60.0 (>32); GLUCOSE, FASTING 77 MG/DL (70-100); MAGNESIUM LEVEL 2.1 MG/DL (1.8-2.4); POTASSIUM SERUM 4.5 MEQ/L (3.5-5.1); SODIUM LEVEL 147 MEQ/L (136-145)
== END ==
LOC: SKLAB5 08:18
DX: D64.9 Anemia, unspecified (principal); I48.91 Unspecified atrial fibrillation; M06.9 Rheumatoid arthritis, unspecified
CPT/HCPCS: 83735

== ENCOUNTER → 2018-08-09 | Outpatient (REF) | payer MEDICARE, MEDICAID ==
[2018-08-09 10:19] LABS: INR 1.86; PROTHROMBIN TIME 21.8 SECONDS (12.1-14.4)
== END ==
LOC: SKLAB5 10:41
DX: I48.91 Unspecified atrial fibrillation (principal)
CPT/HCPCS: 85610

== ENCOUNTER → 2018-08-16 | Outpatient (REF) | payer MEDICARE, MEDICAID ==
[2018-08-16 11:44] LABS: INR 4.79; PROTHROMBIN TIME 46.1 SECONDS (12.1-14.4)
== END ==
LOC: SKLAB5 09:17
DX: I48.91 Unspecified atrial fibrillation (principal)
CPT/HCPCS: 85610

== ENCOUNTER → 2018-08-23 | Outpatient (REF) | payer MEDICARE, MEDICAID ==
[2018-08-23 10:06] LABS: INR 2.51; PROTHROMBIN TIME 27.6 SECONDS (12.1-14.4)
== END ==
LOC: SKLAB5 10:19
DX: I48.91 Unspecified atrial fibrillation (principal)
CPT/HCPCS: 85610

== ENCOUNTER → 2018-08-30 | Outpatient (REF) | payer MEDICARE, MEDICAID ==
[2018-08-30 08:30] LABS: INR 3.75
== END ==
LOC: SKLAB5 07:48
DX: I48.91 Unspecified atrial fibrillation (principal)
CPT/HCPCS: 85610

== ENCOUNTER → 2018-08-31 | Outpatient (REF) | payer MEDICARE, MEDICAID ==
[2018-08-31 08:10] LABS: INR 3.89; PROTHROMBIN TIME 39.1 SECONDS (12.1-14.4)
== END ==
LOC: SKLAB5 08:41
DX: I48.91 Unspecified atrial fibrillation (principal)
CPT/HCPCS: 85610

== ENCOUNTER → 2018-09-03 | Outpatient (REF) | payer MEDICARE, MEDICAID ==
[2018-09-03 08:48] LABS: INR 2.28; PROTHROMBIN TIME 25.6 SECONDS (12.1-14.4)
== END ==
LOC: SKLAB4 07:15
DX: I48.91 Unspecified atrial fibrillation (principal)
CPT/HCPCS: 85610

== ENCOUNTER → 2018-09-06 | Outpatient (REF) | payer MEDICARE, MEDICAID | LOC: SKLAB5 07:59 | DX: I48.91 Unspecified atrial fibrillation (principal) ==

== ENCOUNTER → 2018-11-01 | Outpatient (REF) | payer MEDICARE, MEDICAID ==
[~2018-11-01] MED LIST changes: -FENO145T PO; +FENO145T13 PO
[2018-11-01 08:31] LABS: HEMATOCRIT 41.3 % (36.0-47.0); MEAN CORPUSCULAR HEMOGLOBIN 29.1 pg (27.0-33.0); MEAN CORPUSCULAR HGB CONC 31.5 g/dl (32.0-36.5); MEAN CORPUSCULAR VOLUME 92.6 fl (80.0-96.0); PLATELET COUNT, AUTOMATED 141 10^3/uL (150-450); RED BLOOD COUNT 4.46 10^6/uL (4.00-5.40); WHITE BLOOD COUNT 5.5 10^3/uL (4.0-10.0)
[2018-11-01 08:55] LABS: BLOOD UREA NITROGEN 22 MG/DL (7-18); CALCIUM LEVEL 8.2 MG/DL (8.8-10.2); CARBON DIOXIDE LEVEL 26 MEQ/L (21-32); CHLORIDE LEVEL 109 MEQ/L (98-107); CREATININE FOR GFR 0.69 MG/DL (0.55-1.30); GLOMERULAR FILTRATION RATE > 60.0 (>32); GLUCOSE, FASTING 86 MG/DL (70-100); MAGNESIUM LEVEL 2.2 MG/DL (1.8-2.4); SODIUM LEVEL 144 MEQ/L (136-145)
== END ==
LOC: SKLAB5 08:15
PROVIDERS: ATTEND Family Medicine
DX: M06.9 Rheumatoid arthritis, unspecified (principal); D64.9 Anemia, unspecified

== ENCOUNTER → 2018-11-23 | Outpatient (REF) | payer MEDICARE, MEDICAID | LOC: SKLAB5 08:00 | PROVIDERS: ATTEND Family Medicine | DX: R09.81 Nasal congestion (principal) ==

== ENCOUNTER → 2019-01-31 | Outpatient (REF) | payer MEDICARE, MEDICAID ==
[~2019-01-31] MED LIST changes: -/LINE60TA OR; -/PANT40TA; -/WARF25TA; -/WARF5TA OR; +COUM1TAB17 OR; +COUM1TAB18; +PROT1TAB2; +ZYVO100T OR
[2019-01-31 09:27] LABS: HEMATOCRIT 41.6 % (36.0-47.0); HEMOGLOBIN 12.7 g/dl (12.0-15.5); MEAN CORPUSCULAR HEMOGLOBIN 29.4 pg (27.0-33.0); MEAN CORPUSCULAR HGB CONC 30.5 g/dl (32.0-36.5); MEAN CORPUSCULAR VOLUME 96.3 fl (80.0-96.0); PLATELET COUNT, AUTOMATED 105 10^3/uL (150-450); RED BLOOD COUNT 4.32 10^6/uL (4.00-5.40); WHITE BLOOD COUNT 6.3 10^3/uL (4.0-10.0)
[2019-01-31 09:30] LABS: BLOOD UREA NITROGEN 24 MG/DL (7-18); CALCIUM LEVEL 8.5 MG/DL (8.8-10.2); CARBON DIOXIDE LEVEL 24 MEQ/L (21-32); CHLORIDE LEVEL 116 MEQ/L (98-107); CREATININE FOR GFR 0.75 MG/DL (0.55-1.30); GLOMERULAR FILTRATION RATE > 60.0 (>32); GLUCOSE, FASTING 86 MG/DL (70-100); MAGNESIUM LEVEL 2.3 MG/DL (1.8-2.4); POTASSIUM SERUM 4.3 MEQ/L (3.5-5.1); SODIUM LEVEL 147 MEQ/L (136-145)
== END ==
LOC: SKLAB5 08:08
PROVIDERS: ATTEND Nurse Practitioner Psychiatric/Mental Health
DX: M06.9 Rheumatoid arthritis, unspecified (principal)

== ENCOUNTER → 2019-02-28 | Outpatient (REF) | payer MEDICARE, MEDICAID ==
[2019-02-28 08:25] LABS: BLOOD UREA NITROGEN 39 MG/DL (7-18); CALCIUM LEVEL 8.4 MG/DL (8.8-10.2); CARBON DIOXIDE LEVEL 24 MEQ/L (21-32); CHLORIDE LEVEL 123 MEQ/L (98-107); GLOMERULAR FILTRATION RATE > 60.0 (>32); GLUCOSE, FASTING 95 MG/DL (70-100); SODIUM LEVEL 152 MEQ/L (136-145)
[2019-02-28 08:30] LABS: HEMATOCRIT 38.5 % (36.0-47.0); HEMOGLOBIN 11.2 g/dl (12.0-15.5); MEAN CORPUSCULAR HEMOGLOBIN 28.4 pg (27.0-33.0); MEAN CORPUSCULAR HGB CONC 29.1 g/dl (32.0-36.5); MEAN CORPUSCULAR VOLUME 97.7 fl (80.0-96.0); PLATELET COUNT, AUTOMATED 127 10^3/uL (150-450); RED BLOOD COUNT 3.94 10^6/uL (4.00-5.40); WHITE BLOOD COUNT 7.4 10^3/uL (4.0-10.0)
== END ==
LOC: SKLAB5 06:40
PROVIDERS: ATTEND Family Medicine
DX: E03.9 Hypothyroidism, unspecified (principal); R50.9 Fever, unspecified